=== PATIENT | male | born 1965 | race Caucasian/White ===

== ENCOUNTER → 2018-02-03 | Outpatient (CLI) | payer OTHER ==
[~2018-02-03] MED LIST: BENZONATATE100 MG; BLOOD PRESSURE MED; CYCLOBENZAPRINE5 MG PO; FLOMAX0.4 MG PO; IBUPROFEN 800800 M1 PO; K-DUR 20 MEQ T20 MEQ PO; KEFLEX500 M1 PO; LEVAQUIN 500 M500 MG PO; NORCO 5-325 TA1 EACH PO; SYNTHROID; VENTOLIN HFA 1818 GM INH; ZOFRAN4 MG PO; ZPAK
== END ==
LOC: M.RAD 10:49
DX: R05 Cough (principal); R50.9 Fever, unspecified

== ENCOUNTER → 2018-10-08 | Outpatient (CLI) | payer OTHER ==
[2018-10-08 11:38] LABS: CREATININE 1.1 mg/dL (0.6-1.3)
== END ==
LOC: M.CT 11:15
PROVIDERS: Internal Medicine
DX: K57.30 Diverticulosis of large intestine without perforation or abscess without bleeding (principal); M47.814 Spondylosis without myelopathy or radiculopathy, thoracic region; K76.9 Liver disease, unspecified; N20.0 Calculus of kidney; K56.41 Fecal impaction; M48.07 Spinal stenosis, lumbosacral region; I10 Essential (primary) hypertension; Z88.8 Allergy status to other drugs, medicaments and biological substances

== ENCOUNTER → 2019-07-13 | Outpatient (CLI) | payer BC | LOC: M.RAD 10:11 | DX: M50.323 Other cervical disc degeneration at C6-C7 level (principal); M48.02 Spinal stenosis, cervical region ==

== ENCOUNTER → 2019-08-17 | Outpatient (CLI) | payer BC ==
[~2019-08-17] MED LIST changes: +ADVIL200 M3 PO; +ASA81BEC PO; +LOSARTAN POTAS100 MG PO; +MELOXICAM15 MG PO; -SYNTHROID; +SYNTHROID137 MC1 PO
== END ==
LOC: M.MRI 07-26 08:30
PROVIDERS: ATTEND Registered Nurse Diabetes Educator
DX: M50.30 Other cervical disc degeneration, unspecified cervical region (principal); M50.221 Other cervical disc displacement at C4-C5 level; M25.78 Osteophyte, vertebrae; M48.02 Spinal stenosis, cervical region

== ENCOUNTER → 2019-09-13 | Outpatient (CLI) | payer BC | LOC: M.PC 04:25 | PROVIDERS: ATTEND Physical Medicine & Rehabilitation | DX: M50.00 Cervical disc disorder with myelopathy, unspecified cervical region (principal); M50.10 Cervical disc disorder with radiculopathy, unspecified cervical region; M48.02 Spinal stenosis, cervical region; M47.22 Other spondylosis with radiculopathy, cervical region ==

== ENCOUNTER → 2019-11-08 | Outpatient (CLI) | payer BC | LOC: M.PC 07:59 | PROVIDERS: ATTEND Physical Medicine & Rehabilitation | DX: M50.10 Cervical disc disorder with radiculopathy, unspecified cervical region (principal); M48.02 Spinal stenosis, cervical region; M47.22 Other spondylosis with radiculopathy, cervical region; Z79.899 Other long term (current) drug therapy ==

== ENCOUNTER 2019-12-01 19:02 | Observation (INO) | payer BC ==
[~2019-12-01] VITALS: Ht 175.3 cm; Wt 85.7 kg
[2019-12-01 19:06] VITALS: BP 140/80
[2019-12-01 20:06] LABS: ABSOLUTE BASOPHILS 0.1 thou/uL (0.0-0.2); ABSOLUTE EOSINOPHILS 0.2 thou/uL (0.0-0.7); ABSOLUTE LYMPHOCYTES 2.6 thou/uL (0.8-5.3); ABSOLUTE NEUTROPHILS 5.5 thou/uL (1.6-8.1); BASOPHILS 0.8 %; EOSINOPHILS 2.4 %; HEMATOCRIT 42.5 % (42.0-52.0); LYMPHOCYTES 27.8 %; MCH 31.7 pg (26.0-34.0); MCHC 35.3 g/dL (28.0-37.0); MCV 89.9 fL (80.0-100.0); MONOCYTES 10.4 %; MPV 8.6 fl. (7.2-11.1); NUCLEATED RBCS 0 /100WBC; PLATELET COUNT* 230 thou/uL (150-400); POLYS 58.6 %; RBC 4.72 mil/uL (4.50-6.00); WBC 9.4 thou/uL (4.0-11.0)
[2019-12-01 20:11] LABS: CALCIUM 8.6 mg/dL (8.5-10.1); CREATININE 1.4 mg/dL (0.6-1.3); POTASSIUM 4.2 mmol/L (3.5-5.1)
[2019-12-01 20:17] LABS: APTT 28.2 Seconds (25.0-31.3); PROTIME 10.7 Seconds (9.20-11.50)
[2019-12-01 20:22] LABS: ALBUMIN 3.4 g/dL (3.4-5.0); TOTAL BILIRUBIN 0.6 mg/dL (<0.1-1.0); TOTAL PROTEIN 6.5 g/dL (6.4-8.2)
[2019-12-01 22:13] VITALS: BP 147/99
[2019-12-01 22:30] VITALS: BP 110/78
[2019-12-02 04:00] VITALS: BP 103/83
[2019-12-02 08:08] VITALS: BP 125/82
[2019-12-02] MEDS ORDERED: LEVOTHYROXINE125 MCG PO (09:20)
[2019-12-02 09:26] LABS: HEMOGLOBIN 14.6 gm/dL (14.0-18.0); MCH 31.4 pg (26.0-34.0); MCV 92.3 fL (80.0-100.0); MPV 9.3 fl. (7.2-11.1); RBC 4.65 mil/uL (4.50-6.00); RDW-CV 13.1 % (10.5-14.5)
[2019-12-02 09:32] LABS: CALCIUM 8.5 mg/dL (8.5-10.1); CREATININE 1.2 mg/dL (0.6-1.3); POTASSIUM 4.4 mmol/L (3.5-5.1)
[2019-12-02 10:12] LABS: CHOLESTEROL 156 mg/dL (<200); HDL CHOLESTEROL 43 mg/dL (>40); LDL CHOLESTEROL 103 mg/dL (<100); TC:HDL 3.6 Ratio (Not establshd); TRIGLYCERIDE 52 mg/dL (<150); VLDL 10 mg/dL (<40)
[2019-12-02 10:14] LABS: SERUM ASSESSMENT Clear
--- NOTE | 2019-12-02 10:45 | EKG ---
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
[2019-12-02 12:38] VITALS: BP 125/77
[2019-12-02 16:07] VITALS: BP 112/50
[2019-12-02 16:43] VITALS: BP 112/50
--- NOTE | 2019-12-02 16:44 | CARDNUC ---
[place] [address] CARDIAC NUCLEAR IMAGING REPORT Name: TRACYJOEL GUTIERREZ Room: [address] M.RPj#: [id number] Admission: 12/01/19 Attend Phys: Olga Singh, Discharge: Date of : 61 Date of Service: 12/02/19 1644 Report #: [id number] THIS REPORT FOR: cc: Lashonda Whelan Tammy RNP Liston, Michael J. MD [facility] ~ APPROVED REPORT Study performed: 12/01/2019 22:25:00 Indication: Chest pain Patient Location: In-Patient Room #: [facility] Stress Tech: Grace Carballo Stress Nurse: Betty Ohara RN Ht: 5 ft 9 in Wt: 190 lbs BSA: 2.02 m2 BMI: 28.05 Medical History Medical History: Hyperlipidemia, HTN Medications: asa 81, losartan Allergies: codeine Cardiac Risk Factors: Age, HTN, Hyperlipidemia, FHX of CAD Exercise History: Physically active Resting Data Rest SPECT myocardial perfusion imaging was performed in supine position 30 minutes following the intravenous injection of 10.1 mCi of Tc-99m Sestamibi. Time of rest injection: 11:50 The images were gated to evaluate regional wall motion and calculate left ventricular ejection fraction. Administration Route: IV Administration Site: Right Hand Exercise Stress At peak stress, the patient was injected intravenously with 30.6mCi of Tc-99m Sestamibi. Time of stress injection: 13:35 Administration Route: IV Administration Site: Right Hand Heart Rate at time of stress injection: 148 bpm. Patient continued to exercise for 1 minute(s). [place] [address] CARDIAC NUCLEAR IMAGING REPORT Name: JOEL MOLINA Room: [address]#: [id number] Admission: 12/01/19 Attend Phys: Olga Singh, Discharge: Date of : 61 Date of Service: 12/02/19 1644 Report #: [id number] Gated Stress SPECT was performed 30 minutes after stress injection. Prone imaging was performed. Stress Test Details Stress Test: Exercise stress testing was performed using a Yoel protocol. HR Max Heart Rate (APMHR): 164 bpm Resting HR: 78 bpm Target HR (85% APMHR): 139 bpm Max HR Achieved: 150 bpm % of APMHR: 91 Recovery HR: 98 bpm BP Resting BP: 150/91 mmHg Max BP: 204/87 mmHg Recovery BP: 130/87 mmHg ECG Resting ECG: Sinus Rhythm Stress ECG: Sinus Tachycardia ST Change: None Arrhythmia: None Recovery ECG: Sinus Rhythm Recovery ST Change: None Recovery Arrhythmia: None Clinical Reason for Termination: Completed protocol Exercise duration: 9 min 0 sec Exercise capacity: 10.16 METs Functional Aerobic Impairment 90% The patient tolerated standard protocol exercise without significant cardiac symptoms. Stress ECG Conclusion The baseline twelve-lead EKG shows sinus rhythm without significant ST segment or T wave abnormality. EKGs obtained during and post exercise show sinus rhythm and sinus tachycardia with no significant ST segment or T wave changes when compared to baseline. There were no stress-induced arrhythmias. Study Quality Study: Good Artifact: [place] [address] CARDIAC NUCLEAR IMAGING REPORT Name: RTACYJOEL Rosalie Room: [address]#: [id number] Admission: 12/01/19 Attend Phys: Olga Singh, Discharge: Date of : 61 Date of Service: 12/02/19 1644 Report #: [id number] Study Data At rest, the left ventricular ejection fraction was 63%.. Post stress, the left ventricular ejection was 69%.. TID = 0.82. Perfusion Perfusion images obtained at rest and post exercise stress showed uniform uptake of the radioisotope throughout the myocardium. There were no defects to suggest infarct or ischemia. Wall Motion Normal left ventricular wall motion. Nuclear Conclusion ECG Findings: negative for ischemia Clinical Findings: negative for ischemia Nuclear Findings: negative for ischemia Exercise Capacity: normal Left Ventricular Function: normal Risk Study: low Perfusion study show no defect to suggest infarct or ischemia. Left ventricular systolic function is normal on gated studies. This is a low risk study. <Conclusion> The baseline twelve-lead EKG shows sinus rhythm without significant ST segment or T wave abnormality. EKGs obtained during and post exercise show sinus rhythm and sinus tachycardia with no significant ST segment or T wave changes when compared to baseline. There were no stress-induced arrhythmias. <ELECTRONICALLY SIGNED> By: Greg Trevino MD, FACC 12/02/19 1644 1644 1644 Greg Trevino MD, FACC /INF
== END 2019-12-02 17:30 | disposition home or self-care (01) ==
LOC: M.ERS 19:02 → M.TBA-ER 21:32 → M.2W 21:32
PROVIDERS: Personal Emergency Response Attendant; Registered Nurse; ADMIT Internal Medicine; ATTEND Internal Medicine
DX: R07.89 Other chest pain (principal); E03.9 Hypothyroidism, unspecified; N20.0 Calculus of kidney; K21.9 Gastro-esophageal reflux disease without esophagitis; I10 Essential (primary) hypertension; E78.5 Hyperlipidemia, unspecified; Z79.899 Other long term (current) drug therapy; Z20.828 Contact with and (suspected) exposure to other viral communicable diseases

== ENCOUNTER → 2020-01-14 | Outpatient (CLI) | payer BC ==
[~2020-01-14] MED LIST changes: +LEVOTHYROXINE125 MCG PO; +PERCOCET 5-3251 EACH PO
== END ==
LOC: M.LAB 09:25
PROVIDERS: ATTEND Surgery
DX: Z01.812 Encounter for preprocedural laboratory examination (principal); Z20.828 Contact with and (suspected) exposure to other viral communicable diseases; K40.90 Unilateral inguinal hernia, without obstruction or gangrene, not specified as recurrent

== ENCOUNTER → 2020-01-19 | Day surgery (SDC) | payer BC ==
--- NOTE | ~2020-01-19 | OP ---
[address] [address] OPERATIVE REPORT Name: JOEL MOLINA Room: [facility]#: [id number] Admission: 01/19/20 Attend Phys: Felicita Orta Discharge: Date of : 61 Report #: [id number] THIS REPORT FOR: //name// cc: Lashonda Whelan Tammy RNP ~ CC: Miguel Whelan DATE OF SERVICE: 01/19/2020 PREOPERATIVE DIAGNOSIS: Right inguinal hernia. POSTOPERATIVE DIAGNOSIS: Right indirect inguinal hernia. PRIMARY SURGEON: Miguel Brown DO CO-SURGEON: Erick Patricio DO, PGY4. PERSONNEL PLACEMENT SPECIALIST: LINDSEY Sun student. OPERATION PERFORMED: Right inguinal hernia repair with mesh. ANESTHESIA: General and local. ESTIMATED BLOOD LOSS: 5 mL. SPECIMEN REMOVED: Cord lipoma. COMPLICATIONS: None. IMPLANTS: Bard PerFix size large mesh patch used for repair. INDICATIONS FOR PROCEDURE: The patient is a pleasant 54-year-old male who presented to the office with chief complaint of right groin pain and bulge. The patient was diagnosed with a right inguinal hernia. We recommended outpatient elective inguinal hernia repair with mesh. Full discussion of procedure, alternatives, risks, and possible complications were discussed to include but not limited to bleeding, infection, postoperative pain, scarring, recurrence, injury to other underlying abdominal organs mainly bowel and bladder, hernia recurrence, need for further surgery, mesh complications, need for mesh removal and anesthesia risks. The patient voiced understanding of these risks and agreed to proceed with surgery. DESCRIPTION OF PROCEDURE: The patient was again seen and examined in the preoperative holding area. Fully informed written consent was obtained. Operative site was marked with a marking pen in the right [place] [address] OPERATIVE REPORT Name: JOEL MOLINA Room: [facility]#: [id number] Admission: 01/19/20 Attend Phys: Felicita Orta Discharge: Date of : 61 Report #: [id number] initials. Preoperative antibiotics, 2 g Ancef were given. After consent form was signed, the patient was subsequently transported to the operating room suite and placed on the operating room table in a comfortable supine position. At this time, general anesthesia was induced by the anesthesiologist and team with success of general anesthesia with endotracheal tube. SCDs were placed to bilateral lower extremity calves. Grounding pad was placed in the right lateral thigh. Arms were placed outstretched on arm boards. Safety strap was placed across the patient's lap along with warm blankets. Upper extremity Juanita Hugger was placed across the patient's chest. All extremities and joints were padded and protected. Timeout was performed prior to the onset of procedure. We began by marking the area between the pubic tubercle and the ASIS on the right third way from the distance using a marking pen. A slightly oblique denys was made for incision overlying the inguinal canal. Incision was made with a 15 blade scalpel. Using combination of electrocautery and blunt dissection, we dissected down through the subcutaneous tissue to reach the external oblique aponeurosis. An #11 blade scalpel was used to domínguez the aponeurosis. Hemostats were used to secure both edges of the incision. A Metzenbaum scissors was used to transect the aponeurosis being careful not to injure any underlying structures and monitoring for the ilioinguinal nerve. This was noted to be coursing superior anterior portion of the internal obliques under the aponeurosis and it was protected throughout the entirety of the procedure. At this time, the external ring was found. Spermatic cord was dissected circumferentially and a [place] drain was placed to secure it. The internal oblique cremasteric fibers and external ring were all removed from the spermatic cord, careful to protect all contents including the vas deferens. Once these structures were isolated, there was noted to be a cord lipoma that was excised and was sutured and secured with a 2-0 silk tie. There was an indirect inguinal hernia sac that was also dissected free from the spermatic cord and reduced into the abdomen. The inguinal floor was noted to be weak, but there was no direct defect. A large PerFix mesh was opened to the back table and the patch portion was used over the plug and patch kit. The patch was secured with 0 Prolene at Crispin's ligament and the inferior shelving edge of the inguinal canal. It was secured in an interrupted fashion at the Crispin's ligament and then in running fashion along the shelving edge. It was also secured to the internal oblique both on the cephalad side. The superior shelving edge in interrupted fashion with 3-0 Prolene x 3. The entire inguinal floor was covered with the mesh. The tail was secured around the spermatic cord without strangulation using interrupted Prolene. Once the mesh was secured and sutured into place, the external oblique aponeurosis was closed with a 2-0 Vicryl in running fashion. Jorge's fascia was then closed with interrupted 3-0 Vicryl followed by Camper's and deep dermal layers in a layered fashion with 3-0 interrupted Vicryl. The skin was closed with a running subcuticular 4-0 Monocryl. A 30 mL of 0.5% Marcaine were used in total for local anesthetic. Dermabond skin glue was used to close the skin and a sterile dressing. The groin was cleansed with wet and dry lap prior to placing the Dermabond skin glue dressing. The scrotum was checked with both testes and located securely in the scrotum. [place] [address] OPERATIVE REPORT Name: JOEL MOLINA Room: [facility]#: [id number] Admission: 01/19/20 Attend Phys: Felicita Orta Discharge: Date of : 61 Report #: [id number] well and was extubated in the OR, transferred to PACU in stable condition after brief recovery from anesthesia. PLAN: Discharged home and follow up in the office with Dr. Brown in 2 weeks. By: 08 Tamara Patricio DO /cherrie
== END | disposition home or self-care (01) ==
LOC: M.SUR 05:40
PROVIDERS: ATTEND Surgery
DX: K40.90 Unilateral inguinal hernia, without obstruction or gangrene, not specified as recurrent (principal); E78.5 Hyperlipidemia, unspecified; Z88.5 Allergy status to narcotic agent; Z79.899 Other long term (current) drug therapy; Z98.890 Other specified postprocedural states